=== PATIENT | female | born 1960 | race Caucasian/White ===

== ENCOUNTER → 2023-07-02 18:00 | Outpatient (REF) | payer OTHER, SELFPAY | LOC: PAVMRI 18:00 | PROVIDERS: ATTENDING PHYSICIAN Psychiatry & Neurology Neurology; FAMILY PHYSICIAN Nurse Practitioner | DX: M54.2 Cervicalgia (principal); R51.9 Headache, unspecified; G89.29 Other chronic pain | CPT/HCPCS: 70551; 72141 ==

== ENCOUNTER → 2024-01-23 12:00 | Outpatient (REF) | payer OTHER, SELFPAY | LOC: WDC 12:00 | PROVIDERS: ATTENDING PHYSICIAN Nurse Practitioner | DX: Z12.31 Encounter for screening mammogram for malignant neoplasm of breast (principal) | CPT/HCPCS: 77063; 77067 ==

== ENCOUNTER → 2024-06-15 12:37 | Outpatient (REF) | payer MEDICARE, OTHER, SELFPAY | LOC: HWRAD 12:37 | PROVIDERS: ATTENDING PHYSICIAN Nurse Practitioner | DX: R91.1 Solitary pulmonary nodule (principal) | CPT/HCPCS: 71250 ==